=== PATIENT | female | born 1990 | race Caucasian/White ===

== ENCOUNTER 2016-06-29 08:15 | Emergency (ER) | payer OTHER ==
[~2016-06-29] VITALS: Ht 172.7 cm; Wt 75.0 kg
[~2016-06-29 08:15] MED LIST: BACTRIM,SEPT1 TABLET PO; CHILDREN'S100 MG/51 PO; CIPRO500 MG PO; CLINDAMYCIN HC300 MG PO; DEPO-PROVER150 MG/ML IM; DEPO-PROVER400 MG/ML IM; DIMENHYDRINATE50 MG PO; INVANZ1 GM IV; LEVAQUIN750 MG PO; LOESTRIN1 EACH PO; LORTAB 5-325 M1 EACH PO; MACROBID100 MG PO; MIDOL COMPLETE1 EACH PO; MOTRIN600 MG PO; MOTRIN800 MG PO; NOHOMEMEDS; NORCO 5/3251 TABLET PO; ORTHO TRI-CYCL1 EACH PO; PEPTO BISMOL240 ML PO; PYRIDIUM200 MG PO; TYLENOL COLD M1 EAC1 PO; TYLENOL EXTRA500 MG PO; ZOFRAN4 MG PO; [UNRECOGNIZED DRUG - REMARK]
[2016-06-29] MEDS ORDERED: KEFLEX500 MG PO (08:45)
[2016-06-29 09:05] VITALS: BP 122/78
== END 2016-06-29 09:06 | disposition home or self-care (01) ==
LOC: EME 08:15
DX: L04.0 Acute lymphadenitis of face, head and neck (principal)
CPT/HCPCS: 99281; 99283

== ENCOUNTER 2017-02-10 22:29 | Emergency (ER) | payer OTHER ==
[~2017-02-10] VITALS: Ht 170.2 cm; Wt 78.9 kg
[~2017-02-10 22:29] MED LIST changes: +KEFLEX500 MG PO
[2017-02-10 23:36] LABS: HEMATOCRIT 41.2 % (36.0-46.0); MCH 32.1 PG (29.0-34.0); MCV 97.2 FL (83-99); MEAN PLAT.VOLUME 10.6 uM^3 (9.5-12.4); PLATELET COUNT 219 K/uL (156-360); RBC DIS.WIDTH-CV 11.9 % (11.8-14.6); RBC DIS.WIDTH-SD 42.8 % (39-53); RED BLOOD COUNT 4.24 M/uL (3.80-5.20); WHITE BLOOD COUNT 7.8 K/uL (4.1-10.2)
[2017-02-10 23:48] LABS: CHLORIDE 104 mEq/L (99-109); SODIUM 139 mEq/L (136-147)
[2017-02-10 23:49] LABS: GLUCOSE 76 mg/dL (70-99)
[2017-02-10 23:51] LABS: ANION GAP 9 MEQ/L (2-14)
[2017-02-10 23:53] LABS: GFR ESTIMATE (CALCULATED) > 59 mL/min/
[2017-02-10 23:54] LABS: UREA NITROGEN (BUN) 14 mg/dL (9-23)
[2017-02-11 00:02] LABS: QUANTITATIVE HCG < 4.0 MIU/ML
[2017-02-11 01:11] LABS: ADD MIUA? YES; BILIRUBIN NEGATIVE; BLOOD NEGATIVE; COLOR YELLOW ((YELLOW)); GLUCOSE (STRIP) NEGATIVE; KETONES NEGATIVE; LEUKOCYTES MODERATE; NITRITE NEGATIVE; PROTEIN (STRIP) NEGATIVE; SPECIFIC GRAVITY 1.014 (1.000-1.030)
[2017-02-11 01:13] LABS: BACTERIA RARE /HPF; EPITHELIAL CELLS 1+ /HPF; MUCUS TRACE /LPF; RED BLOOD CELLS 0-5 /HPF (0-5); UCUL ADDED? YES; WHITE BLOOD CELLS 20-30 /HPF (0-5)
[2017-02-11] MEDS ORDERED: CIPRO500 MG PO (01:52)
[2017-02-11 01:55] VITALS: BP 127/82
== END 2017-02-11 01:58 | disposition home or self-care (01) ==
LOC: EME 22:29 → EXP 22:29
PROVIDERS: Emergency Medicine
DX: N20.0 Calculus of kidney (principal); N39.0 Urinary tract infection, site not specified; Z87.440 Personal history of urinary (tract) infections; Z87.442 Personal history of urinary calculi
CPT/HCPCS: 74176; 80048; 81003; 84702; 85027; 87086; 99281; 99284